=== PATIENT | female | born 2005 | race Two or more races ===

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

== ENCOUNTER 2025-03-22 14:10 | Outpatient (CLI) | payer OTHER ==
[~2025-03-22 14:10] MED LIST: ACET500T58 PO; NITR-87 PO; ZOFR4T PO
[2025-03-23 11:35] LABS: Hepatitis B Surface Antigen Negative (Negative)
== END 2025-03-22 17:00 | disposition home or self-care (01) ==
LOC: LAB 14:10
PROVIDERS: ATTEND Nurse Practitioner
DX: Z01.84 Encounter for antibody response examination (principal)
CPT/HCPCS: 36415; 86706; 86735; 86762; 86765; 86787; 87340